=== PATIENT | male | born 1955 | race Caucasian/White ===

== ENCOUNTER → 2020-11-05 | Day surgery (SDC) | payer MEDICARE, OTHER ==
[~2020-11-05] MED LIST: ZOCOR10 MG PO
[2020-11-05 07:39] LABS: HCT 44.9 % (42.0-52.0); HGB 14.5 g/dl (13.2-18.0); MCH 29.6 pg (25.0-31.0); MCHC 32.3 g/dL (32.0-36.0); MCV 91.6 fL (78.0-100.0); MPV 10.2 fL (6.0-9.5); RBC 4.9 M/uL (4.70-6.00); RDW 12.9 % (11.5-14.0); WBC 8.2 K/uL (4.0-10.5)
[2020-11-05 07:54] LABS: ALBUMIN 3.6 g/dL (3.4-5.0); BILIRUBIN - TOTAL 0.7 mg/dL (0.2-1.0); BUN/CREAT RATIO (CALC) 14.9 RATIO; CREATININE 0.87 mg/dL (0.67-1.17); GLOBULIN (CALCULATION) 3.6 g/dL; TOTAL PROTEIN 7.2 g/dL (6.4-8.2)
== END | disposition home or self-care (01) ==
LOC: FAS 06:41
PROVIDERS: Surgery
DX: Z12.11 Encounter for screening for malignant neoplasm of colon (principal); D17.5 Benign lipomatous neoplasm of intra-abdominal organs; K21.9 Gastro-esophageal reflux disease without esophagitis; K64.4 Residual hemorrhoidal skin tags; M06.9 Rheumatoid arthritis, unspecified; F17.210 Nicotine dependence, cigarettes, uncomplicated; Z88.2 Allergy status to sulfonamides; Z88.8 Allergy status to other drugs, medicaments and biological substances; Z98.890 Other specified postprocedural states; Z86.010 Personal history of colon polyps; Z87.19 Personal history of other diseases of the digestive system; Z80.0 Family history of malignant neoplasm of digestive organs; Z82.49 Family history of ischemic heart disease and other diseases of the circulatory system; Z20.822 Contact with and (suspected) exposure to COVID-19
CPT/HCPCS: 36415; 80053; J1100; J2704; J7120